=== PATIENT | male | born 1950 | race Caucasian/White ===

== ENCOUNTER 2016-09-29 19:02 | Emergency (ER) | payer BC ==
[~2016-09-29] VITALS: Ht 180.3 cm; Wt 105.7 kg
[2016-09-29 19:06] VITALS: BP 149/91
[2016-09-29 20:18] LABS: PH, VENOUS 7.413 pH (7.320-7.420)
[2016-09-29 20:28] LABS: ASPARTATE AMINO TRANSFERASE 14 U/L (15-37); BLOOD UREA NITROGEN 14 mg/dL (7-18)
[2016-09-29] MEDS ORDERED: OMEG-14 PO (20:54)
[2016-09-29] MEDS ORDERED: URSO300C27 PO (20:54)
[2016-09-29] MEDS ORDERED: ONDA8TAB12 PO (20:54)
[2016-09-29] MEDS ORDERED: OXYC-229 PO (20:54)
[2016-09-29] MEDS ORDERED: DAPA10TA PO (20:54)
[2016-09-29] MEDS ORDERED: CELE200C PO (20:54)
[2016-09-29] MEDS ORDERED: INSU100I32 SQ (20:54)
[2016-09-29] MEDS ORDERED: ATOR40TA PO (20:54)
[2016-09-29] MEDS ORDERED: OXYC40TA27 PO (20:54)
[2016-09-29] MEDS ORDERED: SODIUM CHLORIDE FLUSH 10ML SYR IVF ONE (21:00)
[2016-09-29] MEDS ORDERED: SODIUM CHLORIDE 0.9% 1,000ML IVBOLUS ONE (21:00)
== END 2016-09-29 23:59 | disposition home or self-care (01) ==
LOC: ED 23:59
DX: R53.83 Other fatigue (principal); E11.65 Type 2 diabetes mellitus with hyperglycemia; R42 Dizziness and giddiness
CPT/HCPCS: 36415; 70450; 71010; 72110; 80053; 81003; 82010; 82140; 82803; 83690; 83880; 85025; 93005; 96360; 96361; 99285; J7030

== ENCOUNTER 2018-04-08 04:27 | Emergency (ER) | payer BC, MEDICARE ==
[~2018-04-08] VITALS: Ht 154.9 cm; Wt 113.4 kg
[~2018-04-08 04:27] MED LIST: ATOR40TA PO; CELE200C PO; DAPA10TA PO; INSU100I32 SQ; OMEG-14 PO; ONDA8TAB12 PO; OXYC-307 PO; OXYC40TA27 PO; URSO300C27 PO
[2018-04-08 05:20] LABS: BASOPHILS # (AUTO) 0.02 x10^3/uL (0-0.1); BASOPHILS % (AUTO) 0 % (0-1); EOSINOPHILS % (AUTO) 4 % (1-7); LYMPHOCYTES # (AUTO) 1.53 x10^3/uL (1-3.4); LYMPHOCYTES % (AUTO) 31 % (22-44); MD NO; MEAN CORPUSCULAR HEMOGLOBIN 29.3 pg (27.5-34.5); MEAN CORPUSCULAR HGB CONC 34.2 g/dL (33.2-36.2); MEAN CORPUSCULAR VOLUME 85.4 fL (81-97); MEAN PLATELET VOLUME 7.1 fL (7.4-10.4); MONOCYTES # (AUTO) 0.26 x10^3/uL (0.2-0.8); MONOCYTES % (AUTO) 5 % (2-9); NEUTROPHILS # (AUTO) 3.02 x10^3/uL (1.8-6.8); NEUTROPHILS % (AUTO) 60 % (42-75); PLATELET COUNT 225 x10^3/uL (130-400); RED BLOOD COUNT 4.87 x10^6/uL (4.38-5.82); RED CELL DISTRIBUTION WIDTH 13.7 % (9.4-14.8)
[2018-04-08 05:31] LABS: CALCIUM 8.1 mg/dL (8.5-10.1); CHLORIDE 111 mmol/L (98-107)
[2018-04-08 05:37] LABS: ALANINE AMINOTRANSFERASE 24 U/L (12-78); ALBUMIN 3.4 g/dL (3.4-5.0); ALKALINE PHOSPHATASE 66 U/L (45-117); ANION GAP 7 mmol/L (5-15); BILIRUBIN,TOTAL 0.4 mg/dL (0.2-1.0); CREATININE 0.81 mg/dL (0.7-1.3)
[2018-04-08 05:51] VITALS: BP 141/82
== END 2018-04-08 06:35 | disposition home or self-care (01) ==
LOC: ED 04:45
DX: S09.8XXA Other specified injuries of head, initial encounter (principal); E11.9 Type 2 diabetes mellitus without complications; E78.5 Hyperlipidemia, unspecified; M54.9 Dorsalgia, unspecified; G89.29 Other chronic pain; Z79.899 Other long term (current) drug therapy; Z90.49 Acquired absence of other specified parts of digestive tract
CPT/HCPCS: 70450; 72125; 80053; 80307; 82962; 85025; 93005; 99284

== ENCOUNTER 2018-05-03 10:40 | Inpatient (IN) | payer MEDICARE ==
[~2018-05-03] VITALS: Ht 180.3 cm; Wt 112.4 kg
--- NOTE | 2018-05-03 10:52 | NUR ---
TO ED ROOM 36 PE , ACCOMPANIED BY SPOUSE. PER SPOUSE, PT SLEEPIER AND EXTREME EMOTION CHANGES, SUPER HAPPY, SAD" SINCE FALL 3 WKS AGO (HIT HEAD). PT HAD "FULL BLOWN SEIZURE ABOUT AN HOUR AGO". HANDS MOUTH HEAD SHAKING, LT FOOT TURNED OUTWARD, NOT THERE. TOOK A WHILE FOR MENTAL STATUS TO RETURN. DR MCDONALD NOW BS FOR EXAM. Addendum: 05/03/18 at 1058 by DIGNA PT ABLE TO MOVE FROM TO BED W/ ASSIST. PT A&OX3, RESP EVEN & UNLABORED, SPEECH CLEAR, SKIN WNL. UE TREMORS BILAT NOTED.
[2018-05-03 11:28] LABS: BASOPHILS # (AUTO) 0.02 x10^3/uL (0-0.1); BASOPHILS % (AUTO) 0 % (0-1); EOSINOPHILS # (AUTO) 0.17 x10^3/uL (0-0.4); EOSINOPHILS % (AUTO) 3 % (1-7); LYMPHOCYTES # (AUTO) 1.18 x10^3/uL (1-3.4); LYMPHOCYTES % (AUTO) 20 % (22-44); MD NO; MEAN CORPUSCULAR HEMOGLOBIN 29.3 pg (27.5-34.5); MEAN CORPUSCULAR HGB CONC 34.3 g/dL (33.2-36.2); MEAN CORPUSCULAR VOLUME 85.3 fL (81-97); MEAN PLATELET VOLUME 7.4 fL (7.4-10.4); MONOCYTES # (AUTO) 0.32 x10^3/uL (0.2-0.8); MONOCYTES % (AUTO) 5 % (2-9); NEUTROPHILS # (AUTO) 4.22 x10^3/uL (1.8-6.8); NEUTROPHILS % (AUTO) 72 % (42-75); PLATELET COUNT 179 x10^3/uL (130-400); RED BLOOD COUNT 5.56 x10^6/uL (4.38-5.82); RED CELL DISTRIBUTION WIDTH 13.6 % (9.4-14.8)
[2018-05-03] MEDS ORDERED: GLIP10TA13 PO (11:28)
--- NOTE | 2018-05-03 11:32 | NUR ---
LABS DRAWN, EKG DONE. PT TO CT PER SHABANA
[2018-05-03 11:37] LABS: INTERNATIONAL NORMALIZED RATIO 0.99 (0.93-1.1); PROTHROMBIN TIME 10.5 Seconds (9.6-11.5)
[2018-05-03 11:39] LABS: ANION GAP 9 mmol/L (5-15); CALCIUM 9.4 mg/dL (8.5-10.1); CHLORIDE 103 mmol/L (98-107)
[2018-05-03 11:40] LABS: SALICYLATE LEVEL < 1.7 mg/dL (2.8-20.0)
[2018-05-03 11:48] LABS: ALANINE AMINOTRANSFERASE 32 U/L (12-78); ALKALINE PHOSPHATASE 101 U/L (45-117); BILIRUBIN,TOTAL 0.9 mg/dL (0.2-1.0); CREATININE 0.87 mg/dL (0.7-1.3); TOTAL PROTEIN 8.2 g/dL (6.4-8.2)
[2018-05-03 11:56] LABS: ACETAMINOPHEN < 2 mcg/mL (10-30)
--- NOTE | 2018-05-03 12:00 | NUR ---
PT & SPOUSE NOTIFIED OF NEED FOR URINE SPECIMEN; URINAL PROVIDED. YELLOW FALL BRACELET & SOCKS APPLIED TO PT. SIDE RAILS UP X2, CALL LIGHT W/IN REACH, MONITORING CONTINUES.
--- NOTE | 2018-05-03 12:42 | NUR ---
DR MCDONALD NOTIFIED OF SPOUSE'S REQUEST FOR PAIN MED FOR PT'S BROWN.
[2018-05-03] MEDS ORDERED: ACETAMINOPHEN 325 MG TABLET ONE (12:48)
[2018-05-03] MEDS ORDERED: ACETAMINOPHEN 325 MG TABLET PO ONE (13:00)
[2018-05-03 13:13] LABS: MICROSCOPIC NOT IND
--- NOTE | 2018-05-03 13:14 | NUR ---
PT REPORT TO EVELINE SMALLS FOR ROOM [id number]
[2018-05-03 13:16] LABS: CULTURE INDICATED? NO
[2018-05-03 13:56] VITALS: BP 120/81
[2018-05-03] MEDS ORDERED: ONDANSETRON 2MG/ML, 2ML IVPush PRN ×2 (14:00→14:30)
[2018-05-03] MEDS ORDERED: ONDANSETRON ODT 4 MG PO PRN (14:00)
[2018-05-03] MEDS ORDERED: LABETALOL 5MG/ML, 20ML IVPush PRN (14:00)
[2018-05-03] MEDS ORDERED: ACETAMINOPHEN 325 MG TABLET PO PRN (14:00)
[2018-05-03] MEDS ORDERED: hydrALAzine 20 MG/ML, 1ML IVPush PRN (14:00)
[2018-05-03] MEDS ORDERED: PLEASE ENTER HEIGHT AND WEIGHT MC SCH (14:00)
[2018-05-03 14:11] LABS: HEMOGLOBIN A1C 8.5 % (4.2-6.3)
[2018-05-03] MEDS: OxyconTIN ER 40 MG TAB.ER PO SCH (14:30)
[2018-05-03] MEDS ORDERED: OxyconTIN ER 10 MG TAB.ER ONE (14:36)
[2018-05-03] MEDS: HEPARIN 5,000 UNITS/ML, 1ML SQ SCH ×2 (14:38→21:54)
[2018-05-03] MEDS ORDERED: ONDANSETRON ODT 8 MG PO SCH (16:00)
[2018-05-03] MEDS: INSULIN LISPRO 100 UNITS/ML, PEN SQ-INSULIN SCH ×2 (16:16→21:50)
[2018-05-03 19:19] VITALS: BP 116/78
[2018-05-03] MEDS ORDERED: ONDANSETRON ODT 8 MG PO PRN (21:00)
[2018-05-03] MEDS ORDERED: OxyconTIN ER 40 MG TAB.ER PO SCH (21:00)
[2018-05-03] MEDS: ATORVASTATIN 40 MG TABLET PO SCH (21:49)
[2018-05-04 01:16] VITALS: BP 108/72
[2018-05-04] MEDS: OxyconTIN ER 40 MG TAB.ER PO SCH ×2 (02:30→14:19)
[2018-05-04] MEDS ORDERED: OxyconTIN ER 10 MG TAB.ER ONE ×2 (02:50→14:14)
[2018-05-04] MEDS: HEPARIN 5,000 UNITS/ML, 1ML SQ SCH ×3 (05:25→22:07)
[2018-05-04 05:36] LABS: BASOPHILS # (AUTO) 0.03 x10^3/uL (0-0.1); BASOPHILS % (AUTO) 1 % (0-1); EOSINOPHILS # (AUTO) 0.23 x10^3/uL (0-0.4); EOSINOPHILS % (AUTO) 4 % (1-7); LYMPHOCYTES # (AUTO) 2.01 x10^3/uL (1-3.4); LYMPHOCYTES % (AUTO) 37 % (22-44); MD NO; MEAN CORPUSCULAR HEMOGLOBIN 29.3 pg (27.5-34.5); MEAN CORPUSCULAR HGB CONC 34.3 g/dL (33.2-36.2); MEAN CORPUSCULAR VOLUME 85.5 fL (81-97); MEAN PLATELET VOLUME 7.8 fL (7.4-10.4); MONOCYTES % (AUTO) 7 % (2-9); NEUTROPHILS # (AUTO) 2.78 x10^3/uL (1.8-6.8); NEUTROPHILS % (AUTO) 51 % (42-75); PLATELET COUNT 168 x10^3/uL (130-400); RED BLOOD COUNT 5.27 x10^6/uL (4.38-5.82); RED CELL DISTRIBUTION WIDTH 13.8 % (9.4-14.8)
[2018-05-04 05:47] LABS: ANION GAP 2 mmol/L (5-15); CALCIUM 8.5 mg/dL (8.5-10.1); CHLORIDE 106 mmol/L (98-107)
[2018-05-04 05:58] LABS: CREATININE 0.75 mg/dL (0.7-1.3)
[2018-05-04 07:19] VITALS: BP 100/67
[2018-05-04] MEDS: INSULIN LISPRO 100 UNITS/ML, PEN SQ-INSULIN SCH ×4 (07:39→20:34)
[2018-05-04] MEDS ORDERED: INSULIN GLARGINE 100 UNITS/ML, PEN SQ-INSULIN SCH ×2 (09:00→21:00)
[2018-05-04 12:53] VITALS: BP 108/74
[2018-05-04 18:45] VITALS: BP 113/70
[2018-05-04] MEDS: ATORVASTATIN 40 MG TABLET PO SCH (20:34)
[2018-05-04] MEDS ORDERED: OxyconTIN ER 15 MG TAB.ER PO SCH (21:00)
[2018-05-05 01:16] VITALS: BP 100/64
[2018-05-05] MEDS: OxyconTIN ER 15 MG TAB.ER PO SCH ×2 (02:30→14:02)
[2018-05-05] MEDS: HEPARIN 5,000 UNITS/ML, 1ML SQ SCH ×2 (05:55→14:00)
[2018-05-05 07:06] VITALS: BP 101/67
[2018-05-05] MEDS: INSULIN LISPRO 100 UNITS/ML, PEN SQ-INSULIN SCH ×2 (08:12→11:45)
[2018-05-05] MEDS ORDERED: INSULIN GLARGINE 100 UNITS/ML, PEN SQ-INSULIN SCH (09:00)
== END 2018-05-05 15:43 | disposition home or self-care (01) | DRG 100 ==
LOC: ED 11:11 → EDIP 12:58 → 4WST 13:43 → DCLOUNGE 05-05 15:25
PROVIDERS: ADMIT Emergency Medicine; ATTEND Emergency Medicine
DX: R56.9 Unspecified convulsions (principal); G92 Toxic encephalopathy; S06.0X9A Concussion with loss of consciousness of unspecified duration, initial encounter; E66.01 Morbid (severe) obesity due to excess calories; E11.65 Type 2 diabetes mellitus with hyperglycemia; T40.605A Adverse effect of unspecified narcotics, initial encounter; E78.5 Hyperlipidemia, unspecified; Z80.6 Family history of leukemia; Z82.0 Family history of epilepsy and other diseases of the nervous system; Z82.49 Family history of ischemic heart disease and other diseases of the circulatory system; Z91.81 History of falling; G62.9 Polyneuropathy, unspecified; F07.81 Postconcussional syndrome; Z88.8 Allergy status to other drugs, medicaments and biological substances
CPT/HCPCS: 36415; 70450; 70551; 71045; 80048; 80053; 80307; 80329; 81003; 82140; 82962; 83036; 83735; 84100; 84443; 85025; 85610; 85730; 93005; 95819; 99285; G0378; J1644; G0480; J1815